=== PATIENT | male | born 1980 | race Caucasian/White ===

== ENCOUNTER 2017-01-31 02:50 | Emergency (ER) | payer SELFPAY ==
[2017-01-31 03:02] VITALS: BP 131/81; RESP 16; TEMP 97.8; O2SAT 98
--- NOTE | 2017-01-31 03:30 | ED PDOC ---
HPI: Psych/Substance Abuse Time Seen by Provider: 01/31/17 03:11 Chief Complaint (Nursing): Substance Abuse Chief Complaint (Provider): "Not sure" ED Caveat: Other (somnolence) History Per: Patient History/Exam Limitations: other (somnolence) Current Symptoms Are (Timing): Still Present Suicide/Self Injury Attempted (Context): None Ingestion Of Substance: ?heroin Associated Symptoms: denies: Agitation, Suicidal Thoughts Additional Complaint(s): 37 yo M of uncomfirmed PMHx including ?Asthma ?DM and ?psychiatric illness presents to ER via EMS due to somnolence w supposed heroin use. Pt states using 2 bags of heroin tonight via IV injection. He is somnolent but arousable to loud voices, being unable to give detailed medical history. However, he does state that he is homeless and normally resides in the long term, though he was outside tonight because he felt he needed air. He denies fevers/chills, nausea, vomiting, diarrhea, constipation, chest pain, or palpitations. Otherwise, he denies dyspnea, SOB, cough, abdominal pain, or myalgias. Past Medical History Vital Signs: Last Vital Signs Temp 97.8 F 01/31/17 02:57 Pulse 115 H 01/31/17 02:57 Resp 16 01/31/17 02:57 BP 131/81 01/31/17 02:57 Pulse Ox 98 01/31/17 02:57 - Medical History PMH: Depression, Diabetes, HTN Denies: Hepatitis, HIV, Seizures, Sexually Transmitted Disease - Family History Family History: States: Unknown Family Hx - Immunization History Hx Influenza Vaccination: No Hx Pneumococcal Vaccination: No - Allergies Allergies/Adverse Reactions: Allergies Allergy/AdvReac Type Severity Reaction Status Date / Time No Known Allergies Allergy Unverified 03/04/14 15:30 Review of Systems ROS Statement: Except As Marked, All Systems Reviewed And Found Negative (see HPI) Physical Exam - Reviewed Nursing Documentation Reviewed: Yes Vital Signs Reviewed: Yes - Physical Exam Appears: Positive for: No Acute Distress Head Exam: Positive for: ATRAUMATIC, NORMOCEPHALIC Skin: Positive for: Normal Color, Warm, Dry Eye Exam: Positive for: Normal appearance (pupils 2-3mm b/l), EOMI Neck: Positive for: Normal, Painless ROM, Supple Cardiovascular/Chest: Positive for: Regular Rate, Rhythm. Negative for: Edema Respiratory: Positive for: Normal Breath Sounds. Negative for: Stridor, Wheezing Pulses-Post. Tibialis (L): 2+ Pulses-Post. Tibialis (R): 2+ Gastrointestinal/Abdominal: Positive for: Normal Exam, Soft. Negative for: Tenderness Back: Negative for: L CVA Tenderness, R CVA Tenderness Extremity: Negative for: Pedal Edema, Calf Tenderness Neurologic/Psych: Positive for: Oriented, Other (arousable to voice) - Laboratory Results Result Diagrams: 01/31/17 03:30 01/31/17 03:30 - ECG O2 Sat by Pulse Oximetry: 98 - Progress ED Course And Treament: 37 yo M of uncomfirmed PMHx including ?Asthma ?DM and ?psychiatric illness presents to ER via EMS due to somnolence w supposed heroin use -CBC -CMP -Utox -EKG -Finger Stick Update 0600: -Pt is improving, alert and remaining oriented Disposition - Clinical Impression Clinical Impression: Heroin abuse - Disposition Disposition Time: 06:00 Condition: STABLE Additional Instructions: Follow up with PMD Dr Acevedo Return to ER in 3 days if unimproved and has not sought medical care Instructions: Narcotic Abuse (ED)
[2017-01-31 03:41] LABS: HEMATOCRIT 39.7 % (35.0-51.0); MEAN CELL VOLUME 83.8 fl (80.0-94.0); MEAN CORPUSCULAR HEMOGLOBIN 27.8 pg (27.0-31.0); MEAN CORPUSCULAR HGB CONC 33.1 g/dL (33.0-37.0); RED CELL DISTRIBUTION WIDTH 15.2 % (11.5-14.5); WHITE BLOOD COUNT 8.3 K/uL (4.8-10.8)
[2017-01-31 03:49] LABS: ALB/GLOB RATIO 1.4 (1.0-2.1); ALCOHOL SERUM < 10 mg/dl (0-10); ALKALINE PHOSPHATASE 43 U/L (38-126); ALT/SGPT 25 U/L (21-72); AST/SGOT 18 U/L (17-59); BILIRUBIN,TOTAL 0.2 mg/dl (0.2-1.3); BLOOD UREA NITROGEN 10 mg/dl (9-20); CALCIUM 9.4 mg/dL (8.4-10.2); CARBON DIOXIDE 28 mmol/L (22-30); CHLORIDE 99 mmol/L (98-107); GFR AFRICAN-AMERICAN > 60; GLUCOSE,RANDOM 152 mg/dL (75-110); POTASSIUM 3.6 MMOL/L (3.6-5.0); SODIUM 138 mmol/l (132-148); TOTAL PROTEIN 6.9 G/DL (6.3-8.2)
[2017-01-31 04:03] VITALS: PULSE 71
--- NOTE | 2017-01-31 14:52 | CARD ---
APPROVED REPORT EKG Measurement Heart [id number] <Conclusion> Normal sinus rhythm Nonspecific T wave abnormality Abnormal ECG
== END 2017-01-31 06:17 | disposition home or self-care (01) ==
LOC: H.ER 02:50
DX: F11.20 Opioid dependence, uncomplicated (principal)
CPT/HCPCS: 80053; 82948; 85027; 93005; 99282; G0480

== ENCOUNTER 2018-05-16 23:35 | Emergency (ER) | payer MEDICAID, OTHER ==
[2018-05-16 23:36] VITALS: BMI 25.0
--- NOTE | 2018-05-17 00:13 | ED PDOC ---
HPI: Dental Pain/Injury Time Seen by Provider: 05/17/18 00:00 Chief Complaint (Nursing): Dental Pain Chief Complaint (Provider): tooth/gum pain History Per: Patient History/Exam Limitations: no limitations Onset/Duration Of Symptoms: Days (3) Current Symptoms Are (Timing): Still Present Additional Complaint(s): 38 y/o male presents for evaluation of right-sided tooth and gum pain x 3 days. Denies fever, facial pain/swelling. Past Medical History Reviewed: Historical Data, Nursing Documentation, Vital Signs Vital Signs: Last Vital Signs Temp 98.8 F 05/16/18 23:40 Pulse 72 05/16/18 23:40 Resp 18 05/16/18 23:40 BP 132/84 05/16/18 23:40 Pulse Ox 100 05/16/18 23:40 - Medical History PMH: Bipolar Disorder, Depression, Fractures, HTN, Schizophrenia Denies: Diabetes, Hepatitis, HIV, Seizures, Sexually Transmitted Disease - Family History Family History: States: No Known Family Hx - Living Arrangements Living Arrangements: Alone - Social History Current smoker - smoking cessation education provided: Yes SMOKER/PACKS PER DAY:: 1 Alcohol: None Drugs: Opiates (heroin) - Immunization History Hx Tetanus Toxoid Vaccination: No Hx Influenza Vaccination: No Hx Pneumococcal Vaccination: No - Home Medications Home Medications: Ambulatory Orders Medication Instructions Recorded Gabapentin [Neurontin] 300 mg PO BID #10 cap 04/25/18 Amoxicillin 500 mg PO TID #20 tablet 05/17/18 Chlorhexidine 0.12% [Peridex] 1 applic PO BID #1 bottle 05/17/18 Naproxen [Naprosyn] 500 mg PO Q12 PRN #20 tablet 05/17/18 - Allergies Allergies/Adverse Reactions: Allergies Allergy/AdvReac Type Severity Reaction Status Date / Time No Known Allergies Allergy Verified 04/25/18 18:37 Review of Systems ROS Statement: Except As Marked, All Systems Reviewed And Found Negative ENT: Positive for: Mouth Pain Physical Exam - Reviewed Nursing Documentation Reviewed: Yes Vital Signs Reviewed: Yes - Physical Exam Appears: Positive for: Well, Non-toxic, No Acute Distress Head Exam: Positive for: ATRAUMATIC, NORMAL INSPECTION, NORMOCEPHALIC Skin: Positive for: Normal Color Eye Exam: Positive for: Normal appearance ENT: Positive for: Other (multiple dental caries. + gingival recession noted throughout; no abscess, facial erythema/edema noted) Neck: Positive for: Normal, Painless ROM Cardiovascular/Chest: Positive for: Regular Rate, Rhythm Respiratory: Positive for: Normal Breath Sounds Neurologic/Psych: Positive for: Alert, Oriented (x3) - ECG O2 Sat by Pulse Oximetry: 100 - Progress ED Course And Treament: Toradol, amox PO Patient educated on findings, discharged with rx Naproxen, Amoxicillin, Chlorhexadine Advised dental follow up within 2 days Return precautions given Disposition - Clinical Impression Clinical Impression: Dental caries, Toothache, Periodontal disease - Patient ED Disposition Is Patient to be Admitted: No Counseled Patient/Family Regarding: Diagnosis, Need For Followup, Rx Given - Disposition Disposition: Routine/Home Disposition Time: 00:14 Condition: IMPROVED Prescriptions: Amoxicillin 500 mg PO TID #20 tablet Chlorhexidine 0.12% [Peridex] 1 applic PO BID #1 bottle Naproxen [Naprosyn] 500 mg PO Q12 PRN #20 tablet PRN Reason: Pain, Moderate (4-7) Instructions: Tooth Decay, Adult, Periodontal Disease, Dental Pain
[2018-05-17 01:17] VITALS: BP 137/82; PULSE 76; RESP 16; TEMP 98.2; O2SAT 97
== END 2018-05-17 01:16 | disposition home or self-care (01) ==
LOC: H.ER 23:35
DX: K02.9 Dental caries, unspecified (principal); K08.89 Other specified disorders of teeth and supporting structures; K05.6 Periodontal disease, unspecified; F17.210 Nicotine dependence, cigarettes, uncomplicated; Z86.59 Personal history of other mental and behavioral disorders; I10 Essential (primary) hypertension
CPT/HCPCS: 96372; 99281; J1885